=== PATIENT | male | born 1995 | race African-American/Black ===

== ENCOUNTER 2016-10-01 04:40 | Emergency (ER) | payer SELFPAY ==
[2016-10-01] MEDS ORDERED: NORMAL SALINE 1000 ML 1,000 ML IV ONE (04:56)
--- NOTE | 2016-10-01 05:00 | ER Document Report ---
ED General - General Chief Complaint: Head Injury with LOC Stated Complaint: FALL,BACK/HEAD INJURY Time Seen by Provider: 10/01/16 04:55 Cannot obtain history due to: Intubated, Altered mental status Notes: Patient is a 24 yoM unknown past medical history who presents by EMS, intubated and sedated after apparently falling from a second story balcony at a motel just prior to arrival. Patient was noted on scene to have spontaneous movements of bilateral upper extremities but EMS is uncertain if he had any lower extremity movement. He was not protecting his airway and so he was intubated on scene. He was transported to the emergency department as weather conditions precluded hot loading on scene. No additional history can be obtained due to patient's clinical status at time of arrival - Related Data Allergies/Adverse Reactions: Unable to Assess Allergy (Unverified 10/01/16 05:40) Home Medications: Current Home Medications Unobtainable [Unobtainable] 10/01/16 [History] Past Medical History - General Information source: Emergency Med Personnel Cannot obtain history due to: Intubated - Social History Smoking Status: Unknown if Ever Smoked Family History: Reviewed & Not Pertinent Review of Systems - Review of Systems -: Yes ROS unobtainable due to patient's medical condition Physical Exam - Vital signs Vitals: Resp Pulse Ox 17 96 10/01/16 04:41 10/01/16 04:41 Interpretation: Normal Notes: PHYSICAL EXAMINATION: GENERAL: Intubated, sedated, GCS 3 T HEAD: Atraumatic, normocephalic. EYES: Pupils pinpoint and reactive to light, sclera anicteric, conjunctiva are normal. ENT: nares patent, no oral pharyngeal trauma. No hemotympanum, no Love's sign , no raccoon eyes. NECK: Cervical collar is in place. LUNGS: Breath sounds clear to auscultation bilaterally and equal. No wheezes rales or rhonchi. HEART: Regular rate and rhythm without murmurs. CHEST WALL: No ecchymosis over the chest wall. ABDOMEN: Soft, bowel sounds present. No abdominal wall bruising EXTREMITIES: No long bone deformities. BACK: No step-offs, or deformities. NEUROLOGICAL: Corneal reflexes are present. Cough and gag present. Pupils are pinpoint but equally reactive. No response to noxious stimuli in any extremity. PSYCH: Unable to assess SKIN: Warm, Dry, normal turgor, superficial 0.5 cm abrasion to the left posterior scalp Course - Re-evaluation Re-evalutation: 10/01/16 04:58 Patient arrived after apparently falling off of the seconds her balcony at a motel just prior to arrival. He was intubated on scene for a GCS less than 7. Was noted to be moving his bilateral upper extremities but EMS is uncertain of lower extremity movement. Patient was intubated with etomidate and succinylcholine. Apparently during transport he did become somewhat agitated, coughing and bucking at the tube and was given with Versed and fentanyl just prior to coming to the emergency department. This does preclude an appropriate neuro assessment time arrival. However patient does have positive corneal reflex, pupillary response is appropriate, does have both cough and gag. He does not respond to noxious stimuli in any extremity at this time although again he does have sedation on board. Head no trauma assessment reveals only a small 1 cm superior occipital right scalp laceration is quite superficial. No obvious long bone deformity, chest or abdominal wall bruising or contusions. FAST exam without evidence of free fluid in the abdomen. No evidence of pericardial effusion or tamponade. Portable chest x-ray without evidence of pneumothorax from acute rib fractures or pulmonary hemorrhage. ET tube placed by EMS is in place. Vital the time of arrival are within normal limits and patient does have spontaneous respirations. Given context of injury, will proceed with planned CT imaging of the head, cervical spine chest abdomen pelvis. Patient is critically ill at this time will require frequent reassessments. He will require transfer to a trauma center. 10/01/16 05:44 CT reports have been reviewed on the phone with the reading radiologist reports a C5 vertebral body fracture without displacement or cord compromise. CTs are otherwise unremarkable without evidence of acute injury. Patient remains sedated without us administering any additional sedation at this time. I discussed this case with the accepting physician Dr. Fulton who is agreed to accept patient in transfer. Will continue to monitor 10/01/16 06:04 Patient is now moving all extremities spontaneously, will require sedation. Will initiate propofol infusion at this time. 10/01/16 06:47 Patient remains hemodynamically stable at this time. - Vital Signs Vital signs: Temp Pulse Resp BP Pulse Ox 95.5 F L 12 L 101/61 99 10/01/16 05:34 10/01/16 05:34 08/12/17 05:34 10/01/16 05:01 - Laboratory Result Diagrams: 10/01/16 04:52 10/01/16 04:52 Laboratory results interpreted by me: 10/01/16 10/01/16 10/01/16 04:52 04:52 05:35 RDW 14.1 H Carbon Dioxide 20 L Glucose 140 H Direct Bilirubin 0.5 H AST 53 H Urine Protein 100 H Urine Blood LARGE H - Diagnostic Test Radiology reviewed: Reports reviewed Critical Care Note - Critical Care Note Total time excluding time spent on procedures (mins): 45 Comments: Critical care time spent obtaining history from patient or surrogate, discussions with consultants, development of treatment plan with patient or surrogate, evaluation of patient's response to treatment, examination of patient , ordering and performing treatments and interventions, ordering and review of laboratory studies, re-evaluation of patient's condition, ordering and review of radiographic studies and review of old charts Discharge - Discharge Clinical Impression: Fall Qualifiers: Encounter type: initial encounter Qualified Code(s): W19.XXXA - Unspecified fall, initial encounter Altered mental status Qualifiers: Altered mental status type: unspecified Qualified Code(s): R41.82 - Altered mental status, unspecified C5 vertebral fracture Qualifiers: Encounter type: initial encounter Fracture type: closed Fracture morphology: unspecified fracture morphology Fracture alignment: nondisplaced Qualified Code( s): S12.401A - Unspecified nondisplaced fracture of fifth cervical vertebra, initial encounter for closed fracture Condition: Critical Disposition: [facility]
[2016-10-01 05:05] LABS: ABSOLUTE LYMPHOCYTES (AUTO) 2.5 10^3/uL (0.5-4.7); ABSOLUTE MONOCYTES (AUTO) 0.5 10^3/uL (0.1-1.4); ABSOLUTE NEUT (AUTO) 4.3 10^3/uL (1.7-8.2); BASOPHILS % (AUTO) 0.4 % (0-2); EOSINOPHILS % (AUTO) 0.4 % (0-6); HEMATOCRIT 44.7 % (37.9-51.0); HEMOGLOBIN 15.1 g/dL (13.5-17.0); HGB HCT DIFFERENCE 0.6; LYMPHOCYTES % (AUTO) 34.3 % (13-45); MEAN CORPUSCULAR HEMOGLOBIN 30.8 pg (27.0-33.4); MEAN CORPUSCULAR HGB CONC 33.8 g/dL (32.0-36.0); MEAN CORPUSCULAR VOLUME 91 fl (80-97); RED CELL DISTRIBUTION WIDTH 14.1 % (11.5-14.0); SEGMENTED NEUTROPHILS % (AUTO) 57.9 % (42-78); WHITE BLOOD COUNT 7.4 10^3/uL (4.0-10.5)
[2016-10-01 05:18] LABS: ALANINE AMINOTRANSFERASE 29 U/L (10-40); ALBUMIN 4.6 g/dL (3.7-5.6); ALCOHOL 202 mg/dL (NONE DETECTED); ALKALINE PHOSPHATASE 70 U/L (65-260); ANION GAP 15 (5-19); ASPARTATE AMINO TRANSFERASE 53 U/L (10-45); BILIRUBIN,DIRECT 0.5 mg/dL (0.0-0.4); BILIRUBIN,TOTAL 0.6 mg/dL (0.2-1.3); BLOOD UREA NITROGEN 15 mg/dL (7-20); CALCIUM 8.9 mg/dL (8.4-10.2); CARBON DIOXIDE 20 mmol/L (22-30); CHLORIDE 105 mmol/L (98-107); GLUCOSE 140 mg/dL (75-110); POTASSIUM 3.7 mmol/L (3.6-5.0); SODIUM 139.9 mmol/L (137-145); TOTAL PROTEIN 8.1 g/dL (6.3-8.2)
--- NOTE | 2016-10-01 05:18 | RADIOLOGY REPORT (SQ) ---
EXAM DESCRIPTION: CHEST SINGLE VIEW COMPLETED DATE/TIME: 10/01/2016 5:06 am REASON FOR STUDY: trauma COMPARISON: None. EXAM PARAMETERS: NUMBER OF VIEWS: One view. TECHNIQUE: Single frontal radiographic view of the chest acquired. RADIATION DOSE: NA LIMITATIONS: None. FINDINGS: LUNGS AND PLEURA: Mild mixed interstitial and airspace opacity with left upper hemithoraci c prominence. Moderate lung volume. MEDIASTINUM AND HILAR STRUCTURES: No masses. Contour normal. HEART AND VASCULAR STRUCTURES: Heart normal in size. Normal vasculature. BONES: No acute findings. HARDWARE: Adequate appearing endotracheal tube tip, 1.4 cm from the grupreet. OTHER: No other significant finding. IMPRESSION: [place] mixed interstitial and airspace opacity. Differential diagnosis includ es mild pulmonary edema, left upper lobar pneumonia/ contusion, and/or chronic interstitial lung dise ase. TECHNICAL DOCUMENTATION: JOB ID: [id number]
--- NOTE | 2016-10-01 05:32 | RADIOLOGY REPORT (SQ) ---
EXAM DESCRIPTION: CT HEAD WITHOUT COMPLETED DATE/TIME: 10/01/2016 5:18 am REASON FOR STUDY: trauma COMPARISON: None. TECHNIQUE: Axial images acquired through the brain without intravenous contrast. Images reviewed wi th bone, brain and subdural windows. Images stored on PACS. All CT scanners at this facility use dose modulation, iterative reconstruction, and/or weight based d osing when appropriate to reduce radiation dose to as low as reasonably achievable (ALARA). [facility]: Dose Right [facility]: CareDose [facility]: Dose Right [facility]: Teradose 4D [facility]: [employer] RADIATION DOSE: Up-to-date CT equipment and radiation dose reduction techniques were employed. CTDIv ol: 64.6 mGy. DLP: 1163 mGy-cm. mGy. LIMITATIONS: None. FINDINGS: VENTRICLES: Normal size and contour. CEREBRUM: No masses. No hemorrhage. No midline shift. Normal ward/white matter differentiation. N o evidence for acute infarction. CEREBELLUM: No masses. No hemorrhage. No alteration of density. No evidence for acute infarction. EXTRAAXIAL SPACES: No fluid collections. No masses. ORBITS AND GLOBE: No intra- or extraconal masses. Normal contour of globe without masses. CALVARIUM: No fracture. PARANASAL SINUSES: Moderate fluid occlusion with air-fluid levels in the sphenoid sinuses. SOFT TISSUES: No mass or hematoma. OTHER: Partially imaged endotracheal and orogastric tubes. IMPRESSION: No acute intracranial findings. Endotracheal-orogastric tubes. Sphenoid sinusitis with acute inflammatory component. TECHNICAL DOCUMENTATION: JOB ID: [id number] Quality ID # [id number]: Final reports with documentation of one or more dose reduction techniques (e.g., Au tomated exposure control, adjustment of the mA and/or kV according to patient size, use of iterative reconstruction technique) 2010 [employer]- All Rights Reserved
--- NOTE | 2016-10-01 05:44 | RADIOLOGY REPORT (SQ) ---
EXAM DESCRIPTION: CT CERVICAL SPINE WITHOUT COMPLETED DATE/TIME: 10/01/2016 5:25 am REASON FOR STUDY: trauma COMPARISON: None. TECHNIQUE: Axial images acquired through the cervical spine without intravenous contrast. Images re viewed with lung, soft tissue and bone windows. Reconstructed coronal and sagittal MPR images review ed. Images stored on PACS. All CT scanners at this facility use dose modulation, iterative reconstruction, and/or weight based d osing when appropriate to reduce radiation dose to as low as reasonably achievable (ALARA). [facility]: Dose Right [facility]: CareDose [facility]: Dose Right [facility]: Teradose 4D [facility]: [employer] RADIATION DOSE: Up-to-date CT equipment and radiation dose reduction techniques were employed. CTDIv ol: 19.5 mGy. DLP: 439 mGy-cm. mGy. LIMITATIONS: None. FINDINGS: ALIGNMENT: Anatomic. MINERALIZATION: Normal. VERTEBRAL BODIES: Coronal plane nondisplaced fracture of the C5 vertebral body without displacement. No demonstrated instability. DISCS: No significant disc disease. FACETS, LATERAL MASSES, POSTERIOR ELEMENTS: No fractures. No dislocation. No acute findings. HARDWARE: None in the spine. VISUALIZED RIBS: No fractures. LUNG APICES AND SOFT TISSUES: No significant or acute findings. OTHER: Endotracheal and enteric tubes partially imaged. IMPRESSION: C5 vertebral fracture without displacement. COMMENT: This report was called to DEB GIVENS MD at05:35 on 10/01/2016. TECHNICAL DOCUMENTATION: JOB ID: [id number] Quality ID # [id number]: Final reports with documentation of one or more dose reduction techniques (e.g., Au tomated exposure control, adjustment of the mA and/or kV according to patient size, use of iterative reconstruction technique) 2010 [employer]- All Rights Reserved
--- NOTE | 2016-10-01 05:49 | RADIOLOGY REPORT (SQ) ---
EXAM DESCRIPTION: CT ABD/PELVIS WITH IV ONLY COMPLETED DATE/TIME: 10/01/2016 5:29 am REASON FOR STUDY: trauma COMPARISON: None. TECHNIQUE: CT scan of the abdomen and pelvis performed using helical scanning technique with dynamic intravenous contrast injection. No oral contrast. Images reviewed with lung, soft tissue, and bone windows. Reconstructed coronal and sagittal MPR images reviewed. Delayed images for evaluation of the urinary system also acquired. All images stored on PACS. All CT scanners at this facility use dose modulation, iterative reconstruction, and/or weight based d osing when appropriate to reduce radiation dose to as low as reasonably achievable (ALARA). [facility]: Dose Right [facility]: CareDose [facility]: Dose Right [facility]: Teradose 4D [facility]: [employer] CONTRAST TYPE AND DOSE: contrast/concentration: Isovue 370.00 mg/ml; Total Contrast Delivered: 100.0 ml; Total Saline Delivered: 70.0 ml RENAL FUNCTION: None required. The patient is less than 50 years old. RADIATION DOSE: Up-to-date CT equipment and radiation dose reduction techniques were employed. CTDIv ol: 19.6 - 21.1 mGy. DLP: 2514 mGy-cm.. LIMITATIONS: None. FINDINGS: LOWER CHEST: See separate report of the CT of the chest. LIVER: Normal size. No masses. No dilated ducts. SPLEEN: Normal size. No focal lesions. PANCREAS: No masses. No significant calcifications. No adjacent inflammation or peripancreatic fluid collections. Pancreatic duct not dilated. GALLBLADDER: No identified stones by CT criteria. No inflammatory changes to suggest cholecystitis. ADRENAL GLANDS: No significant masses or asymmetry. RIGHT KIDNEY AND URETER: No solid masses. No significant calcifications. No hydronephrosis or hyd roureter. LEFT KIDNEY AND URETER: No solid masses. No significant calcifications. No hydronephrosis or hydr oureter. AORTA AND VESSELS: No aneurysm. No dissection. Renal arteries, SMA, celiac without stenosis. RETROPERITONEUM: No retroperitoneal adenopathy, hemorrhage or masses. BOWEL AND PERITONEAL CAVITY: No masses or inflammatory changes. No free fluid or peritoneal masses. APPENDIX: Normal. PELVIS: No mass. No free fluid. Normal bladder. ABDOMINAL WALL: No masses. No hernias. BONES: Left L2 and L3 transverse process fractures with mild distraction and without healing. OTHER: Adequate appearing handed tracheal-NG tubes. Doyle catheter bulb. IMPRESSION: Left L2 and left L3 transverse process fractures with mild distraction no acute intra-ab dominal or pelvic findings. The TECHNICAL DOCUMENTATION: JOB ID: [id number] Quality ID # [id number]: Final reports with documentation of one or more dose reduction techniques (e.g., Au tomated exposure control, adjustment of the mA and/or kV according to patient size, use of iterative reconstruction technique) 2010 [employer]- All Rights Reserved
--- NOTE | 2016-10-01 05:52 | RADIOLOGY REPORT (SQ) ---
EXAM DESCRIPTION: CT CHEST WITH COMPLETED DATE/TIME: 10/01/2016 5:29 am REASON FOR STUDY: trauma COMPARISON: None. TECHNIQUE: CT scan of the chest performed using helical scanning technique with dynamic intravenous contrast injection. Images reviewed with lung, soft tissue and bone windows. Reconstructed coronal and sagittal MPR images reviewed. All images stored on PACS. All CT scanners at this facility use dose modulation, iterative reconstruction, and/or weight based d osing when appropriate to reduce radiation dose to as low as reasonably achievable (ALARA). [facility]: Dose Right [facility]: CareDose [facility]: Dose Right [facility]: Teradose 4D [facility]: [employer] CONTRAST TYPE AND DOSE: 100 cc Isovue 370- low osmolar. RENAL FUNCTION: None required. The patient is less than 50 years old. RADIATION DOSE: . LIMITATIONS: None. FINDINGS: LUNGS AND PLEURA: No opacities, nodules, masses. No pneumothorax. No effusions. HILAR AND MEDIASTINAL STRUCTURES: No identified masses or abnormal nodes. HEART AND VASCULAR STRUCTURES: No aneurysm or dissection. No central pulmonary emboli. No pericardi al effusion. HARDWARE: None in the chest. UPPER ABDOMEN: See separate report of the CT of the abdomen. THYROID AND OTHER SOFT TISSUES: No masses. No adenopathy. BONES: No significant finding. OTHER: Adequate appearing endotracheal -nasogastric tubes. Mild gynecomastia. IMPRESSION: Small moderate left dependent atelectasis. Endotracheal -nasogastric tubes. TECHNICAL DOCUMENTATION: JOB ID: [id number] Quality ID # [id number]: Final reports with documentation of one or more dose reduction techniques (e.g., Au tomated exposure control, adjustment of the mA and/or kV according to patient size, use of iterative reconstruction technique) 2010 [employer]- All Rights Reserved
[2016-10-01 06:03] LABS: APPEARANCE,URINE SLIGHTLY-CLOUDY; BILIRUBIN,URINE NEGATIVE (NEGATIVE); GLUCOSE, URINE NEGATIVE (NEGATIVE); KETONES,URINE NEGATIVE (NEGATIVE); LEUKOCYTE ESTERASE,URINE NEGATIVE (NEGATIVE); NITRITE,URINE NEGATIVE (NEGATIVE); PROTEIN,URINE 100 mg/dL (NEGATIVE); URINE SPECIFIC GRAVITY 1.015; UROBILINOGEN,URINE NEGATIVE mg/dL (<2.0)
[2016-10-01] MEDS ORDERED: PROPOFOL 100 ML IV PRN (06:04)
[2016-10-01] MEDS ORDERED: PROPOFOL 100 ML IV ONE (06:07)
[2016-10-01 06:16] LABS: URINE BARBITURATES SCREEN NEGATIVE; URINE METHADONE SCREEN NEGATIVE; URINE OPIATES LOW NEGATIVE; URINE PHENCYCLIDINE SCREEN NEGATIVE
[2016-10-01 09:37] VITALS: BP 97/58
== END 2016-10-01 09:20 | disposition short-term general hospital (02) ==
LOC: EDBD → ER 04:40
DX: S09.90XA Unspecified injury of head, initial encounter (principal); R41.82 Altered mental status, unspecified; S12.401A Unspecified nondisplaced fracture of fifth cervical vertebra, initial encounter for closed fracture; S00.01XA Abrasion of scalp, initial encounter; W13.0XXA Fall from, out of or through balcony, initial encounter; Y92.59 Other trade areas as the place of occurrence of the external cause
CPT/HCPCS: 99291; 96360; 96361; 86900; 86901; 36415; 86850; 80307 ×2; 85025; 80053; 81001; 71010; 70450; 71260; 72125; 74177; L0172